=== PATIENT | female | born 1990 | race Caucasian/White ===

== ENCOUNTER 2017-12-25 11:36 | Emergency (ER) | payer OTHER, MEDICAID ==
[~2017-12-25] VITALS: Ht 160 cm; Wt 102.1 kg
[~2017-12-25 11:36] MED LIST: ACCUNEB SO1.25 MG/1; CENTANY30 GM TP; CIPRO500 MG PO; CLEOCIN HCL150 MG PO; DOXYCYCLINE 10100 M1 PO; DOXYCYCLINE 10100 MG PO; FLAGYL500 MG PO; HYDROCODONE-AP1 EAC6 PO; IBUPROFEN 800800 M1 PO; IMITREX100 MG PO; KEFLEX500 MG PO; MOBIC7.5 MG PO; NAPROSYN500 MG PO; NORCO 5-325 TA1 EACH PO; PHENERGAN 25 MG25 MG PO; PREDNISONE 20 M20 M1 PO; PROVENTIL HFA6.7 G1 INH; TESSALON PERLE100 MG PO; TRAMADOL 50 MG50 MG PO; TRINATE TABLET1 TAB; TRINATE TABLET1 TAB PO; VENTOLIN HFA 1818 GM INH; ZOFRAN ODT4 MG PO; ZPAK PO
[2017-12-25] MEDS ORDERED: SYMBICORT160 MCG/4. INH (11:53)
[2017-12-25] MEDS ORDERED: PREDNISONE 20 M20 MG PO (14:01)
[2017-12-25] MEDS ORDERED: VENTOLIN HFA 1818 GM INH (14:02)
[2017-12-25 14:10] VITALS: BP 154/88
== END 2017-12-25 14:11 | disposition home or self-care (01) ==
LOC: M.ERS 11:36
DX: J45.901 Unspecified asthma with (acute) exacerbation (principal); B34.9 Viral infection, unspecified; F10.99 Alcohol use, unspecified with unspecified alcohol-induced disorder; J45.909 Unspecified asthma, uncomplicated; Z88.0 Allergy status to penicillin; Z88.8 Allergy status to other drugs, medicaments and biological substances; Z98.890 Other specified postprocedural states

== ENCOUNTER 2018-01-24 10:11 | Emergency (ER) | payer OTHER, MEDICAID ==
[~2018-01-24] VITALS: Ht 160 cm; Wt 102.1 kg
[~2018-01-24 10:11] MED LIST changes: +PREDNISONE 20 M20 MG PO; +SYMBICORT160 MCG/4. INH
[2018-01-24] MEDS ORDERED: NAPROSYN500 MG PO (10:38)
[2018-01-24] MEDS ORDERED: CLEOCIN HCL150 MG PO (10:38)
[2018-01-24 10:49] VITALS: BP 148/87
[2018-01-25] MEDS ORDERED: NORCO 5-325 TA1 EAC1 PO (19:43)
== END 2018-01-24 10:50 | disposition home or self-care (01) ==
LOC: M.ERS 10:11
DX: K02.9 Dental caries, unspecified (principal); K04.7 Periapical abscess without sinus; J45.909 Unspecified asthma, uncomplicated; F17.200 Nicotine dependence, unspecified, uncomplicated; Z90.49 Acquired absence of other specified parts of digestive tract; Z98.890 Other specified postprocedural states; Z88.8 Allergy status to other drugs, medicaments and biological substances; Z91.041 Radiographic dye allergy status; Z88.0 Allergy status to penicillin

== ENCOUNTER 2018-01-25 18:53 | Emergency (ER) | payer OTHER, MEDICAID ==
[~2018-01-25] VITALS: Ht 160 cm; Wt 102.1 kg
[2018-01-25] MEDS ORDERED: NORCO 5-325 TA1 EAC1 PO (19:43)
[2018-01-25 19:49] VITALS: BP 113/66
== END 2018-01-25 19:49 | disposition home or self-care (01) ==
LOC: M.ERS 18:53
DX: K04.7 Periapical abscess without sinus (principal); K08.89 Other specified disorders of teeth and supporting structures; J45.909 Unspecified asthma, uncomplicated; F17.200 Nicotine dependence, unspecified, uncomplicated; Z90.49 Acquired absence of other specified parts of digestive tract; Z98.890 Other specified postprocedural states; Z88.8 Allergy status to other drugs, medicaments and biological substances; Z91.041 Radiographic dye allergy status; Z88.0 Allergy status to penicillin

== ENCOUNTER 2019-01-08 18:06 | Emergency (ER) | payer OTHER ==
[~2019-01-08] VITALS: Ht 160 cm; Wt 108.9 kg
[~2019-01-08 18:06] MED LIST changes: +NORCO 5-325 TA1 EAC1 PO
[2019-01-08] MEDS ORDERED: GLYBURIDE 2.52.5 MG PO (18:19)
[2019-01-08] MEDS ORDERED: IBUPROFEN 800800 M1 PO (18:41)
[2019-01-08] MEDS ORDERED: ACETAMINOPHEN-1 EAC1 PO (18:41)
[2019-01-08] MEDS ORDERED: CIPRO500 MG PO (18:41)
[2019-01-08] MEDS ORDERED: BACTRIM DS TAB1 EACH PO (18:41)
[2019-01-08 19:07] VITALS: BP 144/98
== END 2019-01-08 19:07 | disposition home or self-care (01) ==
LOC: M.ERS 18:06
DX: L03.031 Cellulitis of right toe (principal); J45.909 Unspecified asthma, uncomplicated; Z88.6 Allergy status to analgesic agent; Z91.041 Radiographic dye allergy status; Z88.0 Allergy status to penicillin; Z90.49 Acquired absence of other specified parts of digestive tract; Z98.890 Other specified postprocedural states

== ENCOUNTER 2019-07-16 17:14 | Emergency (ER) | payer OTHER ==
[~2019-07-16] VITALS: Ht 160 cm; Wt 113.4 kg
[~2019-07-16 17:14] MED LIST changes: +ACETAMINOPHEN-1 EAC1 PO; +BACTRIM DS TAB1 EACH PO; +GLYBURIDE 2.52.5 MG PO
[2019-07-16 17:57] LABS: URINE BILIRUBIN NEGATIVE (Negative); URINE BLOOD TRACE (Negative); URINE CLARITY CLEAR; URINE COLOR YELLOW; URINE GLUCOSE-RANDOM NEGATIVE (Negative); URINE KETONES NEGATIVE (Negative); URINE LEUKOCYTES-REFLEX NEGATIVE (Negative); URINE NITRITE-REFLEX NEGATIVE (Negative); URINE PROTEIN NEGATIVE (Negative); URINE UROBILINOGEN 0.2 E.U./dl (0.2-1.0)
[2019-07-16 17:59] LABS: ABSOLUTE EOSINOPHILS 0.6 thou/uL (0.0-0.7); ABSOLUTE LYMPHOCYTES 3.1 thou/uL (0.8-5.3); ABSOLUTE MONOCYTES 0.6 thou/uL (0.0-1.2); BASOPHILS 0.4 %; EOSINOPHILS 5.1 %; HEMATOCRIT 40.7 % (37.0-47.0); HEMOGLOBIN 13.3 gm/dL (12.0-15.0); MCH 28.5 pg (26.0-34.0); MCHC 32.8 g/dL (28.0-37.0); MCV 86.8 fL (80.0-100.0); MONOCYTES 4.9 %; NUCLEATED RBCS 0 /100WBC; PLATELET COUNT* 307 thou/uL (150-400); POLYS 64.6 %; RBC 4.69 mil/uL (4.20-5.00); RDW-CV 14.8 % (10.5-14.5); WBC 12.4 thou/uL (4.0-11.0)
[2019-07-16 18:07] LABS: CREATININE 0.7 mg/dL (0.6-1.3); POTASSIUM 3.9 mmol/L (3.5-5.1)
[2019-07-16 18:11] LABS: ALBUMIN 3.5 g/dL (3.4-5.0); TOTAL BILIRUBIN 0.2 mg/dL (<0.1-1.0); TOTAL PROTEIN 7.2 g/dL (6.4-8.2)
[2019-07-16] MEDS ORDERED: ONDANSETRON HCL4 M2 PO (21:26)
[2019-07-16] MEDS ORDERED: NABUMETONE 750750 M1 PO (21:26)
[2019-07-16] MEDS ORDERED: NORCO 5-325 TA1 EAC1 PO (21:26)
[2019-07-16] MEDS ORDERED: DOXYCYCLINE 10100 MG PO (21:33)
[2019-07-16 21:43] VITALS: BP 137/77
== END 2019-07-16 22:44 | disposition home or self-care (01) ==
LOC: M.ERS 17:14
PROVIDERS: Nurse Practitioner Family
DX: R10.2 Pelvic and perineal pain (principal); R10.31 Right lower quadrant pain; R11.2 Nausea with vomiting, unspecified; J45.909 Unspecified asthma, uncomplicated; Z90.49 Acquired absence of other specified parts of digestive tract; F17.200 Nicotine dependence, unspecified, uncomplicated; Z88.8 Allergy status to other drugs, medicaments and biological substances; Z91.041 Radiographic dye allergy status; Z88.0 Allergy status to penicillin; Z98.890 Other specified postprocedural states

== ENCOUNTER 2019-12-31 11:00 | Emergency (ER) | payer OTHER ==
[~2019-12-31] VITALS: Ht 162.6 cm; Wt 113.4 kg
[~2019-12-31 11:00] MED LIST changes: +NABUMETONE 750750 M1 PO; +ONDANSETRON HCL4 M2 PO
[2019-12-31] MEDS ORDERED: TRAMADOL 50 MG50 MG PO (11:15)
[2019-12-31] MEDS ORDERED: LIDOCAINE VISC100 ML SWISH&SPIT (11:15)
[2019-12-31] MEDS ORDERED: CLEOCIN HCL150 MG PO (11:15)
[2019-12-31 11:46] VITALS: BP 149/96
== END 2019-12-31 11:49 | disposition home or self-care (01) ==
LOC: M.ERS 11:00
DX: K04.7 Periapical abscess without sinus (principal); J45.909 Unspecified asthma, uncomplicated; Z90.49 Acquired absence of other specified parts of digestive tract; Z98.890 Other specified postprocedural states; Z88.5 Allergy status to narcotic agent; Z91.041 Radiographic dye allergy status; Z88.0 Allergy status to penicillin

== ENCOUNTER 2021-12-31 14:23 | Emergency (ER) | payer OTHER ==
[~2021-12-31] VITALS: Ht 160 cm; Wt 77.1 kg
[~2021-12-31 14:23] MED LIST changes: +LIDOCAINE VISC100 ML SWISH&SPIT
[2021-12-31] MEDS ORDERED: HYDROCODON-ACE1 EAC7 PO (16:00)
[2021-12-31 16:16] VITALS: BP 151/79
== END 2021-12-31 16:18 | disposition home or self-care (01) ==
LOC: M.ERS 14:23
DX: S80.01XA Contusion of right knee, initial encounter (principal); J45.909 Unspecified asthma, uncomplicated; Z90.49 Acquired absence of other specified parts of digestive tract; Z98.51 Tubal ligation status; Z88.0 Allergy status to penicillin; Z88.5 Allergy status to narcotic agent; Z91.02 Food additives allergy status; W19.XXXA Unspecified fall, initial encounter; Y93.89 Activity, other specified; Y92.89 Other specified places as the place of occurrence of the external cause; Y99.8 Other external cause status